=== PATIENT | male | born 1980 | race Caucasian/White ===

== ENCOUNTER 2020-11-13 12:33 | Emergency (ER) | payer OTHER ==
[2020-11-13 13:56] LABS: INFECTIOUS MONONUCLEOSIS NEGATIVE (Negative)
[2020-11-13 14:00] LABS: RAPID STREP SCREEN Negative (Negative)
--- NOTE | 2020-11-13 14:12 | ED Physician Documentation ---
History of Present Illness - Stated complaint Stated Complaint: FEVER/SORE THROAT - Chief complaint Chief Complaint: Fever - History obtained from History obtained from: Patient - Additonal information Additional information: Patient comes emergency department chief complaint of sore throat and fever that started couple of days ago. Patient states that he has had the sore throat increasingly for the last 48 hours. This morning, he states he measured a temperature of 104 at home. He states he took 2 tablets of a combination pill of acetaminophen 250 mg and ibuprofen 125 mg Hours ago. Patient denies any other symptoms. No cough, rhinorrhea, shortness of breath, body aches, or abdominal symptoms. He has not had any sick contacts. The patient is in the [place] and is otherwise healthy. He states that his looked in his throat a couple of days ago and this first started and saw white patches and so the patient thought that he had strep throat. He decided to just wait and see if things got better but since it seemed that things are getting worse, he decided to come here to the emergency department. He states he has had his first Covid shot and is due for his second 1 in about a week. No other complaints at this time. Review of Systems Ten Systems: 10 systems reviewed and negative Constitutional: reports: Reviewed and negative Eyes: reports: Reviewed and negative Ears: reports: Reviewed and negative Nose: reports: Reviewed and negative Throat: reports: Sore throat Cardiac: reports: Reviewed and negative Respiratory: reports: Reviewed and negative GI: reports: Reviewed and negative : reports: Reviewed and negative Skin: reports: Reviewed and negative Musculoskeletal: reports: Reviewed and negative Neurologic: reports: Reviewed and negative Psychiatric: reports: Reviewed and negative Endocrine: reports: Reviewed and negative Immunocompromised: reports: Reviewed and negative PD PAST MEDICAL HISTORY - Past Medical History Past Medical History: No - Past Surgical History Past Surgical History: No - Present Medications Home Medications: Ambulatory Orders Medication Instructions Recorded Confirmed No Known Home Medications 11/13/20 11/13/20 - Allergies Allergies/Adverse Reactions: Allergies Allergy/AdvReac Type Severity Reaction Status Date / Time No Known Drug Allergies Allergy Verified 11/13/20 12:39 - Social History Does the pt smoke?: No Smoking Status: Never smoker Does the pt drink ETOH?: Yes ETOH Use: Beer, Liquor Does the pt have substance abuse?: No - Immunizations Immunizations are current?: Yes - POLST Patient has POLST: No PD ED PE NORMAL - Vitals Vital signs reviewed: Yes - General General: Alert and oriented X 3, No acute distress - HEENT HEENT: Atraumatic, PERRL, EOMI, Moist mucous membranes, Other (Moderate erythema posterior pharynx without tonsillar enlargement. Faint white markings on tonsils may represent shallow ulcerations or mild exudates.) - Neck Neck: Supple, no meningeal sign - Cardiac Cardiac: RRR, No murmur, Strong equal pulses - Respiratory Respiratory: No respiratory distress, Clear bilaterally - Abdomen Abdomen: Soft, Non tender, Non distended - Derm Derm: Warm and dry - Extremities Extremities: No deformity - Neuro Neuro: Alert and oriented X 3 - Psych Psych: Normal mood, Normal affect Results - Vitals Vitals: Vital Signs - 24 hr 11/13/20 12:39 Temperature 37 C Heart Rate 88 Respiratory 18 Rate Blood Pressure 139/81 H O2 Saturation 98 Oxygen O2 Source Room air - Labs Labs: Laboratory Tests 11/13/20 11/13/20 11/13/20 13:35 13:35 13:43 Infectious [place] Assay NEGATIVE Influenza A (Rapid) Negative Influenza B (Rapid) Negative Group A Strep Rapid Negative PD MEDICAL DECISION MAKING - ED course Complexity details: reviewed results, re-evaluated patient, considered differential, d/w patient ED course: Patient was worked up along with strep, mono, Covid, and influenza tests. The strep and mono test were negative. Covid and influenza are pending at this time. It is not clear whether the temperature measurement of 104 at home was accurate or not. The patient is quite well-appearing and at this point in time, there is no indication for antibiotics. I have discussed with the patient that his strep culture is pending and that he will be contacted if his strep test or Covid are positive. We discussed symptomatic management at home, as well as the usual indications or return. Departure - Departure Disposition: 01 Home, Self Care Clinical Impression: Pharyngitis Qualifiers: Pharyngitis/tonsillitis etiology: unspecified etiology Qualified Code(s): J02.9 - Acute pharyngitis, unspecified Fever Qualifiers: Fever type: unspecified Qualified Code(s): R50.9 - Fever, unspecified Condition: Stable Instructions: ED Strep Pharyngitis Poss Comments: Your mono and rapid strep tests are negative this time. The strep culture is pending and will be back in about 24 hours. Your Covid and influenza tests are still pending at this time. Usually, we will have results back in about 24 hours for Covid. It is possible that you have a viral sore throat, as certain viruses such as the ones we have tested for today, can cause a high fever, even in adults. The markings on your tonsils are not as definite as we usually would expect for strep, and may be viral; however, if your culture comes back positive you will need to be on antibiotics. We will call you at home to inform you if you are positive and to determine the pharmacy of your choice to call in antibiotics. In the meantime, drink plenty of fluids and take ibuprofen and Tylenol as needed for fever. If you take the combination pills that you took earlier, you may take 4 of the tablets every 6 hours, as needed, based on your adult size. If you develop any further concerning symptoms, please return to the emergency department. Forms: Watchful Waiting
[2020-11-13 14:32] VITALS: BP 131/86
--- NOTE | 2020-11-15 11:18 | ED Physician Documentation ---
ED Addendum - Addendum Addendum: 11/15/20 11:17 Culture came back showing beta-hemolytic strep group C. He had been discharged without any medicines. He does not have any allergies to medicines. I will have the nurses phone and/or transmit a prescription for amoxicillin 500 mg 3 times a day for 7 days #21. They will notify the patient.
== END 2020-11-13 14:32 | disposition home or self-care (01) ==
LOC: ED 12:33
DX: J02.0 Streptococcal pharyngitis (principal); R50.9 Fever, unspecified; Z20.822 Contact with and (suspected) exposure to COVID-19
CPT/HCPCS: 36415; 86308; 87070; 87077; 87275; 87276; 87430; 99283; 99284

== ENCOUNTER 2021-03-04 14:53 | Emergency (ER) | payer OTHER ==
[2021-03-04 15:24] LABS: BASOPHILS % (AUTO) 0.7 %; EOSINOPHILS # (AUTO) 0.1 10^3/uL (0.0-0.7); EOSINOPHILS % (AUTO) 1.5 %; HCT - HEMATOCRIT 46.9 % (42.0-52.0); HGB - HEMOGLOBIN 15.7 g/dL (14.0-18.0); LYMPHOCYTES # (AUTO) 1.3 10^3/uL (1.5-3.5); LYMPHOCYTES % (AUTO) 22.2 %; MEAN CORPUSCULAR HEMOGLOBIN 29.7 pg (27.0-31.0); MEAN CORPUSCULAR HGB CONC 33.5 g/dL (32.0-36.0); MEAN CORPUSCULAR VOLUME 88.7 fL (80.0-94.0); MEAN PLATELET VOLUME 9.1 fL (7.4-11.4); MONOCYTES # (AUTO) 0.9 10^3/uL (0.0-1.0); MONOCYTES % (AUTO) 14.8 %; NEUTROPHILS # (AUTO) 3.5 10^3/uL (1.5-6.6); NEUTROPHILS % (AUTO) 60.1 %; PLT - PLATELET COUNT 172 10^3/uL (130-450); RED BLOOD COUNT 5.29 10^6/uL (4.70-6.10); RED CELL DISTRIBUTION WIDTH 12.3 % (12.0-15.0); WHITE BLOOD COUNT 5.8 x10^3/uL (4.8-10.8)
--- NOTE | 2021-03-04 15:31 | ED Physician Documentation ---
History of Present Illness - Stated complaint Stated Complaint: ABD CRAMPING - Chief complaint Chief Complaint: Abd Pain - History obtained from History obtained from: Patient - History of Present Illness Timing: How many weeks ago (2) Pain level max: 6 Pain level now: 1 - Additonal information Additional information: Patient is a 40-year-old male who complains of generalized abdominal pain for the past 2 weeks, intermittent. Similar episode 1 year ago. The pain is sometimes periumbilical, sometimes epigastric and sometimes left lower quadrant. At worst it is a 6, currently he is at a 1 out of 10. He states he had an episode of fever last night. He was seen at the walk-in clinic this morning and sent here for evaluation. No nausea or vomiting. He states he has had both diarrhea and constipation. No history of inflammatory bowel disease. No recent illnesses other than this. He states similar episode 1 year ago [place] He states that he received IV fluids, antibiotics and was better in 3 days. Nothing seems to make this better or worse. Pain is crampy and intermittent. Review of Systems Constitutional: denies: Fever, Chills GI: denies: Nausea, Vomiting, Diarrhea Skin: denies: Rash Musculoskeletal: denies: Neck pain, Back pain Neurologic: denies: Headache PD PAST MEDICAL HISTORY - Past Medical History Past Medical History: Yes Cardiovascular: None Respiratory: None Neuro: None Endocrine/Autoimmune: None GI: None : None HEENT: None Psych: None Musculoskeletal: None Derm: None - Past Surgical History Past Surgical History: No - Present Medications Home Medications: Ambulatory Orders Medication Instructions Recorded Confirmed No Known Home Medications 11/13/20 03/04/21 - Allergies Allergies/Adverse Reactions: Allergies Allergy/AdvReac Type Severity Reaction Status Date / Time No Known Drug Allergies Allergy Verified 03/04/21 15:01 - Social History Does the pt smoke?: No Smoking Status: Never smoker Does the pt drink ETOH?: Yes Does the pt have substance abuse?: No - Immunizations Immunizations are current?: Yes - POLST Patient has POLST: No PD ED PE NORMAL - Vitals Vital signs reviewed: Yes - General General: Alert and oriented X 3, No acute distress - HEENT HEENT: Moist mucous membranes - Neck Neck: Supple, no meningeal sign - Cardiac Cardiac: RRR, Strong equal pulses - Respiratory Respiratory: No respiratory distress, Clear bilaterally - Abdomen Abdomen: Soft, Non tender, Non distended - Back Back: No spinal TTP - Derm Derm: Warm and dry - Extremities Extremities: No edema, No calf tenderness / cord - Neuro Neuro: Alert and oriented X 3 - Psych Psych: Normal mood, Normal affect Results - Vitals Vitals: Vital Signs - 24 hr 03/04/21 03/04/21 03/04/21 15:01 15:29 17:21 Temperature 36.8 C 36.9 C Heart Rate 75 72 72 Respiratory 18 18 16 Rate Blood Pressure 125/90 H 130/88 H 135/82 H O2 Saturation 99 96 99 Oxygen O2 Source Room air - Labs Labs: Laboratory Tests 03/04/21 03/04/21 03/04/21 13:15 13:15 15:13 WBC 5.8 RBC 5.29 Hgb 15.7 Hct 46.9 MCV 88.7 MCH 29.7 MCHC 33.5 RDW 12.3 Plt Count 172 MPV 9.1 Neut # (Auto) 3.5 Lymph # (Auto) 1.3 L [place] # (Auto) 0.9 Eos # (Auto) 0.1 Baso # (Auto) 0.0 Absolute Nucleated RBC 0.00 Nucleated RBC % 0.0 Sodium 140 Potassium 4.3 Chloride 101 Carbon Dioxide 29 Anion Gap 10.0 BUN 13 Creatinine 1.0 Estimated GFR (MDRD) 82 L Glucose 106 H Calcium 9.5 Total Bilirubin 1.8 H AST 19 ALT 30 Alkaline Phosphatase 81 Total Protein 7.3 Albumin 4.2 Globulin 3.1 Albumin/Globulin Ratio 1.4 Lipase 34 Urine Color STRAW Urine Clarity CLEAR Urine pH 6.5 Ur Specific [place] 1.010 Urine Protein NEGATIVE Urine Glucose (UA) NEGATIVE Urine Ketones NEGATIVE Urine Occult Blood NEGATIVE Urine Nitrite NEGATIVE Urine Bilirubin NEGATIVE Urine Urobilinogen 0.2 (NORMAL) Ur Leukocyte Esterase NEGATIVE Ur Microscopic Review NOT INDICATED Urine Culture Comments NOT INDICATED - Rads (name of study) CT abdomen pelvis Radiology: Final report received, EMP read contemporaneously, See rad report (1 mm calculus at the left UVJ) PD MEDICAL DECISION MAKING - ED course Complexity details: reviewed results, re-evaluated patient, considered differential, d/w patient ED course: 40-year-old male with a 1 minute millimeter left ureteral calculus. At the UVJ. Pain-free here. No fevers. No chills. No evidence of UTI. We will continue supportive care and have him follow-up with his doctor for further care. Patient counseled regarding signs and symptoms for which I believe and urgent re-evaluation would be necessary. Patient with good understanding of and agreement to plan and is comfortable going home at this time This document was made in part using voice recognition software. While efforts are made to proofread this document, sound alike and grammatical errors may occur. Departure - Departure Disposition: 01 Home, Self Care Clinical Impression: Ureteral calculus, left Condition: Good Instructions: ED Stone Renal W Colic Follow-Up: your,doctor in 1 week [Other] Comments: You can use Motrin or Tylenol as needed for pain. Follow-up with your doctor for further care. It is also recommend that you follow-up with your doctor for an ultrasound of your liver for the likely hemangioma. Return if you worsen. This 1 mm kidney stone should pass on its own. CT scan results: Tiny approximately 1 mm left ureteric calculus with trace hydroureter. Approximately 4 cm hypodense liver lesion is suspected represent a hemangioma. Correlation with any prior outside imaging would be helpful to confirm stability. Otherwise, consider nonemergent hepatic ultrasound for further evaluation. Discharge Date/Time: 03/04/21 17:22
[2021-03-04 15:34] LABS: BILIRUBIN,URINE NEGATIVE (NEGATIVE); GLUCOSE, URINE (UA) NEGATIVE (NEGATIVE); KETONES,URINE (UA) NEGATIVE (NEGATIVE); LEUKOCYTE ESTERASE, URINE NEGATIVE (NEGATIVE); NITRITE,URINE NEGATIVE (NEGATIVE); OCCULT BLOOD,URINE NEGATIVE (NEGATIVE); PH,URINE 6.5 PH (5.0-7.5); PROTEIN,URINE NEGATIVE (NEGATIVE); UROBILINOGEN,URINE 0.2 (NORMAL) E.U./dL (NORMAL)
[2021-03-04 15:36] LABS: ALBUMIN 4.2 g/dL (3.2-5.5); ALBUMIN/GLOBULIN RATIO 1.4 (1.0-2.2); BILIRUBIN,TOTAL 1.8 mg/dL (0.2-1.0); CALCIUM 9.5 mg/dL (8.5-10.3); POTASSIUM 4.3 mmol/L (3.5-5.0); TOTAL PROTEIN 7.3 g/dL (6.7-8.2)
[2021-03-04 15:39] LABS: CLARITY,URINE CLEAR (CLEAR)
[2021-03-04] MEDS ORDERED: IOPAMIDOL-300 100 ML VIAL ONE (15:53)
--- NOTE | 2021-03-04 16:30 | CT Report ---
PROCEDURE: Abdomen/Pelvis W INDICATIONS: LLQ pain, diverticulitis suspected CONTRAST: IV CONTRAST: Isovue 300 ml: 100 PO CONTRAST: *NO PO CONTRAST TECHNIQUE: After the administration of intravenous contrast, 5 mm thick sections acquired from the diaphragms to the symphysis. 5 mm thick coronal and sagittal reformats were acquired. For radiation dose reducti on, the following was used: automated exposure control, adjustment of mA and/or kV according to katharina ent size. COMPARISON: None. FINDINGS: Image quality: Excellent. ABDOMEN: Lung bases: Lung bases are clear. Heart size is normal. Solid organs: There is a 4 cm hypodense lesion in the posterior right hepatic lobe which is indetermi estefany but is suspected represent a hemangioma, with peripheral pooling of contrast material. Gallbladd er is normal Biliary system is non dilated. Pancreas enhances normally. No adrenal nodules. There is a tiny approximately 1 mm hyperdense presumed calculus at the left UVJ (series 3 image 83, with so me very mild dilatation of the left ureter proximal to this. Peritoneum and bowel: No findings of diverticulitis. There is mild diverticulosis. No abnormally dil ated or thickened loops of bowel. No pericolonic or mesenteric fat stranding. Nodes and vessels: No retroperitoneal or mesenteric adenopathy by size criteria. Aorta and inferior vena cava are normal in size. Miscellaneous: No ventral hernias. PELVIS: Genitourinary: Bladder wall thickness is normal. Miscellaneous: No inguinal hernias or adenopathy. Bones: No suspicious bony lesions. No vertebral body compression fractures. IMPRESSION: Tiny approximately 1 mm left ureteric calculus with trace hydroureter. Approximately 4 cm hypodense liver lesion is suspected represent a hemangioma. Correlation with any p rior outside imaging would be helpful to confirm stability. Otherwise, consider nonemergent hepatic u ltrasound for further evaluation. Reviewed by: Jameel Fitzgerald MD on 03/04/2021 4:28 PM PDT Approved by: Jameel Fitzgerald MD on 03/04/2021 4:28 PM PDT Station ID: [id number]
[2021-03-04] MEDS ORDERED: IOPAMIDOL-300 100 ML VIAL IVP ONE (17:05)
[2021-03-04 17:22] VITALS: BP 135/82
== END 2021-03-04 17:22 | disposition home or self-care (01) ==
LOC: ED 14:53
DX: N20.1 Calculus of ureter (principal)
CPT/HCPCS: 36415; 74177; 80053; 81003; 83690; 85025; 99284; Q9967; 81001; 87086

== ENCOUNTER 2021-07-06 23:36 | Emergency (ER) | payer OTHER ==
[2021-07-06 23:57] LABS: BILIRUBIN,URINE NEGATIVE (NEGATIVE); GLUCOSE, URINE (UA) NEGATIVE (NEGATIVE); KETONES,URINE (UA) NEGATIVE (NEGATIVE); LEUKOCYTE ESTERASE, URINE NEGATIVE (NEGATIVE); NITRITE,URINE NEGATIVE (NEGATIVE); OCCULT BLOOD,URINE NEGATIVE (NEGATIVE); PH,URINE 6.5 PH (5.0-7.5); PROTEIN,URINE NEGATIVE (NEGATIVE); UROBILINOGEN,URINE 0.2 (NORMAL) E.U./dL (NORMAL)
[2021-07-06 23:58] LABS: CLARITY,URINE CLEAR (CLEAR)
[2021-07-07 00:02] LABS: BASOPHILS % (AUTO) 0.3 %; EOSINOPHILS % (AUTO) 0.2 %; HCT - HEMATOCRIT 51.6 % (42.0-52.0); HGB - HEMOGLOBIN 17.1 g/dL (14.0-18.0); LYMPHOCYTES # (AUTO) 0.7 10^3/uL (1.5-3.5); MEAN CORPUSCULAR HEMOGLOBIN 29.1 pg (27.0-31.0); MEAN CORPUSCULAR HGB CONC 33.1 g/dL (32.0-36.0); MEAN CORPUSCULAR VOLUME 87.9 fL (80.0-94.0); MEAN PLATELET VOLUME 9.5 fL (7.4-11.4); MONOCYTES # (AUTO) 0.4 10^3/uL (0.0-1.0); MONOCYTES % (AUTO) 4.5 %; NEUTROPHILS # (AUTO) 8.6 10^3/uL (1.5-6.6); NEUTROPHILS % (AUTO) 87.9 %; PLT - PLATELET COUNT 157 10^3/uL (130-450); RED BLOOD COUNT 5.87 10^6/uL (4.70-6.10); RED CELL DISTRIBUTION WIDTH 12.7 % (12.0-15.0); WHITE BLOOD COUNT 9.8 x10^3/uL (4.8-10.8)
[2021-07-07] MEDS ORDERED: ACETAMINOPHEN 325 MG TABLET PO STA (00:08)
[2021-07-07] MEDS ORDERED: FAMOTIDINE 20 MG/2 ML VIAL IVP STA (00:09)
[2021-07-07 00:14] LABS: ALBUMIN 4.7 g/dL (3.2-5.5); ALBUMIN/GLOBULIN RATIO 1.5 (1.0-2.2); BILIRUBIN,TOTAL 1.9 mg/dL (0.2-1.0); CALCIUM 9.3 mg/dL (8.5-10.3); CREATININE 1.1 mg/dL (0.6-1.2); POTASSIUM 3.7 mmol/L (3.5-5.0); TOTAL PROTEIN 7.9 g/dL (6.7-8.2)
[2021-07-07] MEDS ORDERED: SODIUM CHLORIDE 0.9% 500 ML IV STA (00:28)
--- NOTE | 2021-07-07 00:28 | ED Physician Documentation ---
History of Present Illness - Stated complaint Stated Complaint: FEVER, ABD PX - Chief complaint Chief Complaint: Abd Pain - History obtained from History obtained from: Patient - Additonal information Additional information: 40yM with pmh kidney stones p/w gradual onset abd pain starting around 7pm after eating dinner, constant, cramping/bloating sensation, radiating to mid/lower abdomen, mild severity, resolving after about half an hour, a/w fever 103 by ear thermometer. patient has been suffering from URI symptoms this past week and took dayquil around 1:30pm but otherwise has had no meds. denies sick contacts. denies n/v/d/urinary sx or back pain. he had 3 small bowel movements today that were nonbloody. PSH - none Social - estimates he drinks 4 servings of alcohol 3-4 times a week. Review of Systems Ten Systems: 10 systems reviewed and negative Constitutional: reports: Fever, Chills Cardiac: denies: Chest pain / pressure Respiratory: denies: Dyspnea, Cough GI: reports: Abdominal Pain. denies: Nausea, Vomiting, Diarrhea : denies: Dysuria, Hematuria Skin: denies: Rash Musculoskeletal: denies: Back pain PD PAST MEDICAL HISTORY - Past Medical History Past Medical History: Yes Cardiovascular: None Respiratory: None Neuro: None Endocrine/Autoimmune: None GI: None : Kidney stones HEENT: None Psych: None Musculoskeletal: None Derm: None - Past Surgical History Past Surgical History: Yes HEENT: Other - Present Medications Home Medications: Ambulatory Orders Medication Instructions Recorded Confirmed No Known Home Medications 11/13/20 07/07/21 - Allergies Allergies/Adverse Reactions: Allergies Allergy/AdvReac Type Severity Reaction Status Date / Time No Known Drug Allergies Allergy Verified 07/06/21 23:40 - Social History Does the pt smoke?: No Smoking Status: Never smoker Does the pt drink ETOH?: Yes ETOH Use: Beer, Liquor Does the pt have substance abuse?: No - Immunizations Immunizations are current?: Yes - POLST Patient has POLST: No PD ED PE NORMAL - Vitals Vital signs reviewed: Yes - General General: Alert and oriented X 3, No acute distress, Well developed/nourished - HEENT HEENT: Atraumatic, PERRL, EOMI - Neck Neck: Supple, no meningeal sign - Cardiac Cardiac: Other (borderline tachycardic rate, regular rhythm) - Respiratory Respiratory: No respiratory distress, Clear bilaterally - Abdomen Abdomen: Non tender, Non distended, Other (discomfort to epigastric palpation) - Back Back: No CVA TTP - Derm Derm: Normal color, Warm and dry - Extremities Extremities: No deformity - Neuro Neuro: Alert and oriented X 3 - Psych Psych: Normal mood, Normal affect Results - Vitals Vitals: Vital Signs - 24 hr 07/06/21 07/06/21 07/07/21 23:38 23:41 00:34 Temperature 37.7 C Heart Rate 132 H 117 H Respiratory 18 14 Rate Blood Pressure 131/88 H 133/68 H O2 Saturation 97 100 07/07/21 01:06 Temperature 39.2 C H Heart Rate 112 H Respiratory 18 Rate Blood Pressure 145/81 H O2 Saturation 99 Oxygen O2 Source Room air - Labs Labs: Laboratory Tests 07/06/21 07/06/21 07/06/21 23:51 23:55 23:55 WBC 9.8 RBC 5.87 Hgb 17.1 Hct 51.6 MCV 87.9 MCH 29.1 MCHC 33.1 RDW 12.7 Plt Count 157 MPV 9.5 Neut # (Auto) 8.6 H Lymph # (Auto) 0.7 L [place] # (Auto) 0.4 Eos # (Auto) 0.0 Baso # (Auto) 0.0 Absolute Nucleated RBC 0.00 Nucleated RBC % 0.0 Sodium 137 Potassium 3.7 Chloride 100 L Carbon Dioxide 27 Anion Gap 10.0 BUN 17 Creatinine 1.1 Estimated GFR (MDRD) 73 L Glucose 152 H Calcium 9.3 Total Bilirubin 1.9 H AST 32 ALT 52 Alkaline Phosphatase 64 Total Protein 7.9 Albumin 4.7 Globulin 3.2 Albumin/Globulin Ratio 1.5 Lipase 27 Urine Color YELLOW Urine Clarity CLEAR Urine pH 6.5 Ur Specific [place] 1.015 Urine Protein NEGATIVE Urine Glucose (UA) NEGATIVE Urine Ketones NEGATIVE Urine Occult Blood NEGATIVE Urine Nitrite NEGATIVE Urine Bilirubin NEGATIVE Urine Urobilinogen 0.2 (NORMAL) Ur Leukocyte Esterase NEGATIVE Ur Microscopic Review NOT INDICATED Urine Culture Comments NOT INDICATED PD MEDICAL DECISION MAKING - ED course ED course: 40yM p/w mild GI symptoms along with fever/chills at home, but found to be afebrile here. NO RLQ ttp, no leukocytosis, abdomen is completely soft so lower suspicion for appendicitis at this time. negative londono sign, also history is n ot c/w gallstones/cholecystitis. normal u/a therefore unlikely kidney stones. Likely viral etiology. patient still mildly tachycardic and febrile s/p tylenol and 500cc ivf but is feeling significantly better and requesting to go home. offered additional fluids and monitoring and he declined. symptomatic care discussed and return precautions given. plan to f/u with [facility]. Departure - Departure Disposition: 01 Home, Self Care Clinical Impression: Abdominal pain, Fever Condition: Good Instructions: ED Fever Unconf Cause Comments: You are seen in the emergency department for fever and abdominal pain.Your lab work was normal and we did not uncover any emergent conditions on exam. If you have a stomach virus you are likely contagious and should stay home except when visiting a doctor. Please follow up with [facility] and return to the emergency department if you have new or worsening symptoms or other concerns.
[2021-07-07 01:25] VITALS: BP 148/65
== END 2021-07-07 01:25 | disposition home or self-care (01) ==
LOC: ED 23:36
DX: R10.13 Epigastric pain (principal); R50.9 Fever, unspecified; Z87.442 Personal history of urinary calculi
CPT/HCPCS: 36415; 80053; 81003; 83690; 85025; 96361; 96374; 99283; A9270; 81001; 87086